=== PATIENT | female | born 1930 | race American Indian/Alaskan Native ===

== ENCOUNTER 2020-09-28 12:01 | Emergency (ER) | payer MEDICARE ==
--- NOTE | 2020-09-28 12:40 | Emergency Department Report ---
ED General Adult HPI - General Chief complaint: Medical Clearance Stated complaint: FELL I MONTH AGO/WEAKNESS PUI?: No Time Seen by Provider: 09/28/20 12:13 Source: patient, family, EMS ( EMS documentation not available at time of chart dictation ), RN notes reviewed Mode of arrival: Stretcher Limitations: Altered Mental Status, Physical Limitation - History of Present Illness Initial comments: The patient was evaluated in the emergency department for symptoms described in the history of present illness. He/she was evaluated in the context of the global COVID-19 pandemic, which necessitated consideration that the patient might be at risk for infection with the virus that causes COVID-19. Institutional protocols and algorithms that pertain to the evaluation of patients at risk for COVID-19 are in a state of rapid change based on information released by regulatory bodies including the CDC and federal and state organizations. These policies and algorithms were followed during the patient's care in the emergency department. Please note that these policies, procedures and recommendations changed on a rapid basis. Primary CARE doctor: [facility] This is an 89-year-old female. She is not known to myself previously. She may have a history of hypertension. She is accompanied by her daughter, who provides all the history of present illness. Patient's daughter: Ms. Helen Prather; [phone] This is an 89-year-old female, who was brought to the hospital by emergency medical services with a complaint of weakness. As per her daughter, the patient had a fall at the end of August. Patient's daughter states that the patient was walking," that looked like her legs gave out on her." The patient's daughter is not sure if the patient hit her head or neck or back. She reports that since the fall, the patient has been bedbound and bedridden. She reports no fever, nausea, vomiting or diarrhea. She reports no possible Covid exposure. She does not think the patient has started any new medications. She reports that the patient is reluctant to eat and drink, because the patient does not want to uri jo and defecate on herself. She further reports that they had a televisit through [place] recently, and were encouraged to present to an emergency room last night. The patients daughter is not able to get the patient in a car without assistance. Thus, emergency medical services were contacted. The patient herself is resting comfortably in her stretcher. She is awake, and moves 4 extremities. She currently does not answer open-ended or close ended questions, but does respond to her name, and to some simple commands. -: Gradual, week(s) Quality: constant Improves with: none Worsens with: none - Related Data Allergies Allergy/AdvReac Type Severity Reaction Status Date / Time No Known Allergies Allergy Unverified 09/28/20 12:55 ED Review of Systems ROS: Stated complaint: FELL I MONTH AGO/WEAKNESS Other details as noted in HPI Comment: As per irvin Constitutional: malaise, weakness. denies: fever Respiratory: denies: cough Cardiovascular: denies: syncope Gastrointestinal: denies: nausea, vomiting, diarrhea Genitourinary: denies: dysuria Neurological: weakness, confusion ED Past Medical Hx - Social History Smoking Status: Unknown if ever smoked ED Physical Exam - General Limitations: Altered Mental Status, Physical Limitation General appearance: in no apparent distress - Head Head exam: Present: atraumatic, normocephalic - Eye Eye exam: Present: normal appearance, EOMI - ENT ENT exam: Present: mucous membranes dry - Neck Neck exam: Present: normal inspection. Absent: tenderness, meningismus - Respiratory Respiratory exam: Present: decreased breath sounds. Absent: respiratory distress, wheezes, rales, rhonchi, stridor - Cardiovascular Cardiovascular Exam: Present: regular rate, normal rhythm, normal heart sounds. Absent: bradycardia, tachycardia, irregular rhythm, systolic murmur, diastolic murmur, rubs, gallop - GI/Abdominal GI/Abdominal exam: Present: soft. Absent: distended, tenderness, guarding, rebound, rigid, pulsatile mass - Extremities Exam Extremities exam: Present: normal inspection, pedal edema, other (2+ pulses note d in the bilateral upper and lower extremities. There is no palpable cord. negative Homans sign. Muscular compartments are soft. The pelvis is stable.). Absent: calf tenderness - Back Exam Back exam: Present: normal inspection, paraspinal tenderness. Absent: CVA tenderness (R), CVA tenderness (L) - Neurological Exam Neurological exam: Present: other (The patient is awake. There is no facial droop. The patient yells when examined. Withdraws for extremity dependence.) - Psychiatric Psychiatric exam: Present: anxious - Skin Skin exam: Present: warm, dry. Absent: rash ED Course Vital Signs 09/28/20 09/28/20 09/28/20 12:12 12:15 12:31 Temperature 97.8 F Pulse Rate 94 H 89 Respiratory 13 16 22 Rate Blood Pressure 109/72 109/72 O2 Sat by Pulse 99 99 99 Oximetry 09/28/20 09/28/20 09/28/20 13:00 14:01 14:31 Temperature Pulse Rate 83 80 79 Respiratory 24 12 19 Rate Blood Pressure 115/66 119/72 128/68 O2 Sat by Pulse 98 99 98 Oximetry 09/28/20 09/28/20 09/28/20 15:01 15:31 16:01 Temperature Pulse Rate 79 78 72 Respiratory 21 21 17 Rate Blood Pressure 150/77 129/78 148/69 O2 Sat by Pulse 99 Oximetry - Reevaluation(s) Reevaluation #1: 09/28/20 13:48 Differential diagnosis, including but not limited to: Debility, pneumonia, urinary tract infection, myopathy, thyroid derangement, electrolyte derangement, case management patient, inability to care for self, spinal injury, intracranial injury Assessment and plan: 89-year-old female, who is awake, moves 4 extremities, protecting her airway, who fell a few weeks ago, and has been bedridden, not abl e to care for herself. Obtain appropriate laboratory studies, CT scan of the brain, CT and L-spine, x-ray the chest, pelvis x-ray, EKG, urinalysis, and reassess. This will likely be an admission. We will have to discuss with the [place] team once her diagnostics have resulted. I have discussed this with the patient's daughter, who verbalized understanding, and who is amenable to this plan of care. I also asked the patient's daughter if the patient has advanced directives and goals of care in place. At the moment she does not. Reevaluation #2: 09/28/20 14:[address] scan of the brain, CT and L-spine negative for acute traumatic pathology. X-ray of the chest, pelvis negative for acute findings. Urinalysis pending. EKG nonspecific. Laboratory studies suggestive of leukocytosis, suspicious for stress reaction. Urinalysis pending. Patient also found to have evidence of dehydration, hypercalcemia, and probable type II troponin leak, manifest by borderline elevated troponin. IV fluids ordered. Aspirin level pending. We will reach out and discuss with [facility]. 09/28/20 14:54 I have discussed the patient's history, physical, pertinent laboratory studies and imaging studies with Dr Madrigal of [place] She states that she will coordinate bed placement with her hospitalist team at [facility]. I have been contacted patient's daughter, have informed her of the pertinent laboratory studies radiology studies, physical exam findings and plan of care, she has provided consent for transfer over the phone. Reevaluation #3: 09/28/20 17:24 Dr Ruth Ann Gay accepting physician at [facility] Medical Decision Making - Lab Data Result diagrams: 09/28/20 13:44 09/28/20 13:44 Vital Signs 09/28/20 12:15 Temperature 97.8 F Pulse Rate 94 H Respiratory 16 Rate Blood Pressure 109/72 O2 Sat by Pulse 99 Oximetry Lab Results 09/28/20 09/28/20 09/28/20 Range/Units 13:44 13:44 13:44 WBC 12.7 H (4.5-11.0) K/mm3 RBC 4.10 (3.65-5.03) M/mm3 Hgb 12.4 (10.1-14.3) gm/dl Hct 37.9 (30.3-42.9) % MCV 92 (79-97) fl MCH 30 (28-32) pg MCHC 33 (30-34) % RDW 14.6 (13.2-15.2) % Plt Count 298 (140-440) K/mm3 Lymph % (Auto) 6.8 L (13.4-35.0) % Alcorn % (Auto) 9.6 H (0.0-7.3) % Eos % (Auto) 0.8 (0.0-4.3) % Baso % (Auto) 0.2 (0.0-1.8) % Lymph # (Auto) 0.9 L (1.2-5.4) K/mm3 Alcorn # (Auto) 1.2 H (0.0-0.8) K/mm3 Eos # (Auto) 0.1 (0.0-0.4) K/mm3 Baso # (Auto) 0.0 (0.0-0.1) K/mm3 Seg Neutrophils % 82.6 H (40.0-70.0) % Seg Neutrophils # 10.5 H (1.8-7.7) K/mm3 Sodium 138 (137-145) mmol/L Potassium 4.0 (3.6-5.0) mmol/L Chloride 101.1 (98-107) mmol/L Carbon Dioxide 24 (22-30) mmol/L Anion Gap 17 mmol/L BUN 67 H (7-17) mg/dL Creatinine 1.2 (0.6-1.2) mg/dL Estimated GFR 51 ml/min BUN/Creatinine Ratio 56 % Glucose 112 H (65-100) mg/dL Calcium 11.2 H (8.4-10.2) mg/dL Magnesium (1.7-2.3) mg/dL Total Bilirubin 0.60 (0.1-1.2) mg/dL AST 35 (5-40) units/L ALT 17 (7-56) units/L Alkaline Phosphatase 82 (35-129) units/L Total Creatine Kinase (30-135) units/L Troponin T 0.031 H (0.00-0.029) ng/mL Total Protein 7.6 (6.3-8.2) g/dL Albumin 3.0 L (3.9-5) g/dL Albumin/Globulin Ratio 0.7 % Acetaminophen 5.0 L (10.0-30.0) ug/mL 09/28/20 Range/Units 13:44 WBC (4.5-11.0) K/mm3 RBC (3.65-5.03) M/mm3 Hgb (10.1-14.3) gm/dl Hct (30.3-42.9) % MCV (79-97) fl MCH (28-32) pg MCHC (30-34) % RDW (13.2-15.2) % Plt Count (140-440) K/mm3 Lymph % (Auto) (13.4-35.0) % Alcorn % (Auto) (0.0-7.3) % Eos % (Auto) (0.0-4.3) % Baso % (Auto) (0.0-1.8) % Lymph # (Auto) (1.2-5.4) K/mm3 Alcorn # (Auto) (0.0-0.8) K/mm3 Eos # (Auto) (0.0-0.4) K/mm3 Baso # (Auto) (0.0-0.1) K/mm3 Seg Neutrophils % (40.0-70.0) % Seg Neutrophils # (1.8-7.7) K/mm3 Sodium (137-145) mmol/L Potassium (3.6-5.0) mmol/L Chloride (98-107) mmol/L Carbon Dioxide (22-30) mmol/L Anion Gap mmol/L BUN (7-17) mg/dL Creatinine (0.6-1.2) mg/dL Estimated GFR ml/min BUN/Creatinine Ratio % Glucose (65-100) mg/dL Calcium (8.4-10.2) mg/dL Magnesium 2.40 H (1.7-2.3) mg/dL Total Bilirubin (0.1-1.2) mg/dL AST (5-40) units/L ALT (7-56) units/L Alkaline Phosphatase (35-129) units/L Total Creatine Kinase 298 H (30-135) units/L Troponin T (0.00-0.029) ng/mL Total Protein (6.3-8.2) g/dL Albumin (3.9-5) g/dL Albumin/Globulin Ratio % Acetaminophen (10.0-30.0) ug/mL Vital Signs 09/28/20 12:15 Temperature 97.8 F Pulse Rate 94 H Respiratory 16 Rate Blood Pressure 109/72 O2 Sat by Pulse 99 Oximetry - EKG Data -: EKG Interpreted by Md EKG shows normal: sinus rhythm Rate: normal - EKG Data When compared to previous EKG there are: previous EKG unavailable 09/28/20 13:43 EKG interpreted at 12: 39 Sinus rhythm, 86 bpm. Borderline leftward axis deviation. Borderline left anterior fascicular block. Intervals within normal limits, minimal motion artifact. This is an abnormal EKG. This is not a STEMI. - Radiology Data Radiology results: report reviewed, image reviewed PELVIS ONE VIEW INDICATION / CLINICAL INFORMATION: fall weakness COMPARISON: None available. FINDINGS: BONES / JOINT(S): No acute fracture or subluxation. 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 SOFT TISSUES: No significant abnormality. ADDITIONAL FINDINGS: None. Signer Name: Ronak Aguilar MD Signed: 09/28/2020 12:14 PM Workstation Name: [id number] CHEST 1 VIEW 09/28/2020 12:11 PM INDICATION / CLINICAL INFORMATION: Altered Mental Status. COMPARISON: None available. FINDINGS: SUPPORT DEVICES: None. HEART / MEDIASTINUM: No significant abnormality. LUNGS / PLEURA: No significant pulmonary or pleural abnormality. No pneumothorax. ADDITIONAL FINDINGS: No significant additional findings. IMPRESSION: No acute abnormality. Signer Name : Ronak Aguilar MD Signed: 09/28/2020 12:13 PM Workstation Name: [email or web address] CT head/brain wo con INDICATION: Altered Mental Status. TECHNIQUE: Routine CT head. All CT scans at this location are performed using CT dose reduction for ALARA by means of automated exposure control. COMPARISON: None. FINDINGS: Intracranial: Avelar-white matter differentiation is maintained. No intracranial hemorrhage. No extra axial collection. No hydrocephalus. No herniation. Sinuses: Paranasal sinuses and mastoid air cells are essentially clear. Orbits: Globes are intact. Calvarium: No acute fracture. IMPRESSION: 1. No acute intracranial abnormality. Signer Name: Lázaro Dooley MD Signed: 09/28/2020 12:33 PM Workstation Name: [id number] CT CERVICAL SPINE: 09/28/2020 INDICATION / CLINICAL INFORMATION: fall weak. COMPARISON: None available. FINDINGS: CT images of the cervical spine were obtained. Images are evaluated in the axial, coronal, and sagittal planes. There is no evidence of acute abnormality. Degenerative disc and facet changes are present throughout the cervical spine. Focal mild reversal of cervical lordosis is centered at C5-6. CRANIOCERVICAL JUNCTION: Unremarkable. PARASPI NAL STRUCTURES: Unremarkable Incidental note is made of 3.0 cm right thyroid nodule IMPRESSION: No acute abnormality. INCIDENTAL THYROID NODULE RECOMMENDATIONS Nonpalpable nodules detected on US or other anatomic imaging studies are termed incidentally discovered nodules or incidentalomas. Nonpalpable nodules have the same risk of malignancy as palpable nodules with the same size. Generally, only nodules >1 cm should be evaluated, since they have a greater potential to be clinically significant cancers. (PORTER, 2009). Follow up for incidental thyroid nodules <1 cm is not recommended. In patients <35 years with an incidental thyroid nodule detected on CT, MRI, or extrathyroidal ultrasound, dedicated thyroid ultrasound is recommended if the nodule is 1 cm, has no suspicious imaging features, and if the patient has normal life expectancy. In patients 35 years with an incidental thyroid nodule detected on CT, MRI, or extrathyroidal ultrasound, dedicated thyroid ultrasound is recommended if the nodule is 1.5 cm, has no suspicious imaging features, and if the patient has normal life expectancy. All CT scans at this location are performed using dose reduction to ALARA by means of automated exposure control. Signer Name: Charly Jensen MD Signed: 09/28/2020 1:13 PM Workstation Name: [email or web address] CT LUMBAR SPINE: 09/28/2020 INDICATION / CLINICAL INFORMATION: fall weakness, back pain. COMPARISON: None available. FINDINGS: CT images of the lumbar spine were obtained. Images are evaluated in the axial, coronal, and sagittal planes. There is no evidence of acute abnormality. Mild left convex scoliosis is present. Vertebral body height is well preserved. The bones are diffusely osteopenic. Prominent bilateral facet degenerative changes are present, more pronounced on the right. There is mild grade 1 anterolisthesis at the L4-5 level. Vertebral body alignment is otherwise unremarkable. PARASPINAL STRUCTURES: Unremarkable. IMPRESSION: No acute abnormality. Degenerative changes and osteopenia. All CT scans at this location are performed using dose reduction to ALARA by means of automated exposure control. Signer Name: Charly Jensen MD Signed: 09/28/2020 1:15 PM Workstation Name: [id number] CT THORACIC SPINE: 09/28/2020 INDICATION / CLINICAL INFORMATION: fall weakness, back pain. COMPARISON: None available. FINDINGS: CT images of the thoracic spine were obtained. Images are evaluated in the axial, coronal, and sagittal planes. There is no evidence of acute osseous injury. Right convex scoliosis of the thoracic spine is present. The bones are diffusely osteopenic. Degenerative disc space narrowing is present at all levels in the thoracic spine. Anterior bridging osteophytes are present ventral margin of the thoracic vertebral bodies. PARASPINAL STRUCTURES: Unremarkable IMPRESSION: No acute abnormality. Degenerative changes. All CT scans at this location are performed using dose reduction to ALARA by means of automated exposure control. Signer Name: Charly Jensen MD Signed: 09/28/2020 1:16 PM Workstation Name: [id number] Critical care attestation.: If time is entered above; I have spent that time in minutes in the direct care of this critically ill patient, excluding procedure time. ED Disposition Clinical Impression: Falls, Debility, Unable to care for self, Dehydration, Hypercalcemia, Elevated troponin, Back pain, Bacteriuria [facility] IP Is pt being admited?: No Does the pt Need Aspirin: No Condition: Good Referrals: EMMY ARGUELLES [Other] - 3-5 Days
--- NOTE | 2020-09-28 13:18 | XRay Report ---
CHEST 1 VIEW 09/28/2020 12:11 PM INDICATION / CLINICAL INFORMATION: Altered Mental Status. COMPARISON: None available. FINDINGS: SUPPORT DEVICES: None. HEART / MEDIASTINUM: No significant abnormality. LUNGS / PLEURA: No significant pulmonary or pleural abnormality. No pneumothorax. ADDITIONAL FINDINGS: No significant additional findings. IMPRESSION: No acute abnormality. Signer Name: Ronak Aguilar MD Signed: 09/28/2020 1:13 PM Workstation Name: [id number]
--- NOTE | 2020-09-28 13:19 | XRay Report ---
PELVIS ONE VIEW INDICATION / CLINICAL INFORMATION: fall weakness COMPARISON: None available. FINDINGS: BONES / JOINT(S): No acute fracture or subluxation. 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 SOFT TISSUES: No significant abnormality. ADDITIONAL FINDINGS: None. Signer Name: Ronak Aguilar MD Signed: 09/28/2020 1:14 PM Workstation Name: [email or web address]
--- NOTE | 2020-09-28 13:38 | Cat Scan Report ---
CT head/brain wo con INDICATION: Altered Mental Status. TECHNIQUE: Routine CT head. All CT scans at this location are performed using CT dose reduction for A RANDELL by means of automated exposure control. COMPARISON: None. FINDINGS: Intracranial: Avelar-white matter differentiation is maintained. No intracranial hemorrhage. No extra a xial collection. No hydrocephalus. No herniation. Sinuses: Paranasal sinuses and mastoid air cells are essentially clear. Orbits: Globes are intact. Calvarium: No acute fracture. IMPRESSION: 1. No acute intracranial abnormality. Signer Name: Lázaro Dooley MD Signed: 09/28/2020 1:33 PM Workstation Name: [id number]
[2020-09-28 14:16] LABS: Basophils % (Auto) 0.2 % (0.0-1.8); Eosinophils # (Auto) 0.1 K/mm3 (0.0-0.4); Eosinophils % (Auto) 0.8 % (0.0-4.3); Hematocrit 37.9 % (30.3-42.9); Hemoglobin 12.4 gm/dl (10.1-14.3); Lymphocytes # (Auto) 0.9 K/mm3 (1.2-5.4); Lymphocytes % (Auto) 6.8 % (13.4-35.0); Mean Corpuscular HGB Conc 33 % (30-34); Mean Corpuscular Volume 92 fl (79-97); Monocytes # (Auto) 1.2 K/mm3 (0.0-0.8); Monocytes % (Auto) 9.6 % (0.0-7.3); Platelet Count 298 K/mm3 (140-440); Red Cell Distribution Width 14.6 % (13.2-15.2)
--- NOTE | 2020-09-28 14:17 | Cat Scan Report ---
CT CERVICAL SPINE: 09/28/2020 INDICATION / CLINICAL INFORMATION: fall weak. COMPARISON: None available. FINDINGS: CT images of the cervical spine were obtained. Images are evaluated in the axial, coronal, and sagitt al planes. There is no evidence of acute abnormality. Degenerative disc and facet changes are present throughout the cervical spine. Focal mild reversal of cervical lordosis is centered at C5-6. CRANIOCERVICAL JUNCTION: Unremarkable. PARASPINAL STRUCTURES: Unremarkable Incidental note is made of 3.0 cm right thyroid nodule IMPRESSION: No acute abnormality. INCIDENTAL THYROID NODULE RECOMMENDATIONS Nonpalpable nodules detected on US or other anatomic imaging studies are termed incidentally discover ed nodules or incidentalomas. Nonpalpable nodules have the same risk of malignancy as palpable nodule s with the same size. Generally, only nodules >1 cm should be evaluated, since they have a greater po tential to be clinically significant cancers. (PORTER, 2009). Follow up for incidental thyroid nodules <1 cm is not recommended. In patients <35 years with an incidental thyroid nodule detected on CT, MRI, or extrathyroidal ultras ound, dedicated thyroid ultrasound is recommended if the nodule is 1 cm, has no suspicious imaging fe atures, and if the patient has normal life expectancy. In patients 35 years with an incidental thyroid nodule detected on CT, MRI, or extrathyroidal ultraso und, dedicated thyroid ultrasound is recommended if the nodule is 1.5 cm, has no suspicious imaging f eatures, and if the patient has normal life expectancy. All CT scans at this location are performed using dose reduction to ALARA by means of automated expos ure control. Signer Name: Charly Jensen MD Signed: 09/28/2020 2:13 PM Workstation Name: [id number]
--- NOTE | 2020-09-28 14:19 | Cat Scan Report ---
CT LUMBAR SPINE: 09/28/2020 INDICATION / CLINICAL INFORMATION: fall weakness, back pain. COMPARISON: None available. FINDINGS: CT images of the lumbar spine were obtained. Images are evaluated in the axial, coronal, and sagittal planes. There is no evidence of acute abnormality. Mild left convex scoliosis is present. Vertebral body height is well preserved. The bones are diffusely osteopenic. Prominent bilateral facet degenerative changes are present, more pronounced on the right. There is mild grade 1 anterolisthesis at the L4-5 level. Vertebral body alignment is otherwise unrema rkable. PARASPINAL STRUCTURES: Unremarkable. IMPRESSION: No acute abnormality. Degenerative changes and osteopenia. All CT scans at this location are performed using dose reduction to ALARA by means of automated expos ure control. Signer Name: Charly Jensen MD Signed: 09/28/2020 2:15 PM Workstation Name: [id number]
--- NOTE | 2020-09-28 14:21 | Cat Scan Report ---
CT THORACIC SPINE: 09/28/2020 INDICATION / CLINICAL INFORMATION: fall weakness, back pain. COMPARISON: None available. FINDINGS: CT images of the thoracic spine were obtained. Images are evaluated in the axial, coronal, and sagitt al planes. There is no evidence of acute osseous injury. Right convex scoliosis of the thoracic spine is present. The bones are diffusely osteopenic. Degenerative disc space narrowing is present at all levels in the thoracic spine. Anterior bridging o steophytes are present ventral margin of the thoracic vertebral bodies. PARASPINAL STRUCTURES: Unremarkable IMPRESSION: No acute abnormality. Degenerative changes. All CT scans at this location are performed using dose reduction to ALARA by means of automated expos ure control. Signer Name: Charly Jensen MD Signed: 09/28/2020 2:16 PM Workstation Name: [id number]
[2020-09-28 14:28] LABS: Calcium 11.2 mg/dL (8.4-10.2)
[2020-09-28] MEDS ORDERED: LACTATED RINGERS 1,000 ML IV ONE (14:29)
[2020-09-28 14:40] LABS: Chol/HDL Ratio 2.87 %
[2020-09-28 14:44] LABS: INR 1.14 (0.87-1.13)
[2020-09-28 14:47] LABS: Partial Thromboplastin Time 25.5 Sec. (24.2-36.6)
[2020-09-28 14:48] LABS: Bacteria,Urine 1+ /HPF (Negative); Bilirubin,Urine NEG (Negative); Blood,Urine NEG (Negative); Color,Urine Yellow (Yellow); Granular Casts,Urine 3 /LPF; Mucus,Urine FEW /HPF
[2020-09-28] MEDS ORDERED: cefTRIAXone/NS 1 GM/50 ML 1 GM/50 ML BAG IV ONE (14:52)
[2020-09-28] MEDS ORDERED: SODIUM CHLORIDE 0.9% 1000 ML 1,000 ML IV ONE (14:54)
[2020-09-28 18:26] VITALS: BP 158/67
--- NOTE | 2020-09-29 10:53 | Electrocardiograph Report ---
[facility] Test Date: 2020-09-28 Test Time: 12:39:38 Pat Name: AJIT LAZAR Department: Room: Gender: F Run Lead: LOLA : 1930 Requested By: JENNIFER PUENTES Order Number: [id number] Reading MD: Nickolas Walton Measurements Intervals [place] Rate: 86 P: 91 LA: 135 QRS: -28 QRSD: 90 T: 69 QT: 353 QTc: 422 Interpretive Statements Sinus rhythm No previous ECG available for comparison Electronically Signed On 09-29-2020 10:53:32 EDT by Nickolas Walton
== END 2020-09-28 18:20 | disposition short-term general hospital (02) ==
LOC: ED 12:01
DX: E86.0 Dehydration (principal); E83.52 Hypercalcemia; M54.9 Dorsalgia, unspecified; R77.8 Other specified abnormalities of plasma proteins; R53.81 Other malaise; R82.71 Bacteriuria; Z78.9 Other specified health status; W18.30XA Fall on same level, unspecified, initial encounter; Y93.89 Activity, other specified; Y92.89 Other specified places as the place of occurrence of the external cause; Y99.8 Other external cause status
CPT/HCPCS: 36415; 70450; 71045; 72125; 72128; 72131; 72170; 80053; 80061; 81001; 82140; 82550; 83735; 84443; 84484; 85025; 85610; 85730; 86850; 86900; 86901; 87086; 93005; 96365; 99285; J0696; J7030; 80320; G0480